=== PATIENT | male | born 1990 | race Asian ===

== ENCOUNTER 2023-09-05 03:26 | Emergency (ER) | payer SELFPAY ==
[~2023-09-05] VITALS: Ht 167.6 cm; Wt 68.0 kg
[2023-09-05 03:30] VITALS: BP_SYST 131; PULSE 100; RESP 18; TEMP 97.7; O2SAT 96
[2023-09-05 03:43] VITALS: BP_SYST 131; PULSE 100; RESP 18; TEMP 97.7; O2SAT 98
== END 2023-09-05 03:40 ==
LOC: SED 03:26
DX: Z02.89 Encounter for other administrative examinations (principal)
CPT/HCPCS: 99283